=== PATIENT | female | born 1960 | race Caucasian/White ===

== ENCOUNTER 2020-01-29 05:59 | Inpatient (IN) ==
[2020-01-29] MEDS ORDERED: HYDROmorphone INJ 0.5 MG/0.5 ML SYR IV PRN (06:14)
[2020-01-29] MEDS ORDERED: SODIUM CHLORIDE 0.9% 1000ML 1,000 ML IV STA (06:14)
[2020-01-29] MEDS ORDERED: ONDANSETRON INJ 2 MG/ML 2 ML VIAL IV STA (06:14)
[2020-01-29 06:44] LABS: Appearance Urine Cloudy (Clear); Bacteria Urine Automated 1+ (Negative); Bilirubin Urine Negative (Negative); Blood Urine Negative (Negative); Color Urine Yellow; Epithelial Cell Urine Auto >30 /lpf (0-5); Glucose Urine UA Negative (Negative); Ketones Urine Negative (Negative); Leukocyte Esterase Urine 3+ (Negative); Nitrite Urine Negative (Negative); Protein Urine Negative (Negative); RBC Urine Automated 0-4 /hpf (0-4); Specific Gravity Urine 1.017 (1.000-1.030); Urobilinogen Urine Negative (Negative); pH Urine 5.5 (4.5-7.5)
[2020-01-29 06:49] LABS: Basophils # (auto) 0.03 K/uL (0-0.2); Basophils % (auto) 0.2 %; Eosinophils # (auto) 0.06 K/uL (0-0.5); Eosinophils % (auto) 0.4 %; Hematocrit (blood only) 42.6 % (37-47); Hemoglobin 14.3 g/dL (12.0-16.0); Immature Granulocytes # (auto) 0.02 K/uL (0.00-0.02); Immature Granulocytes % (auto) 0.1 %; Lymphocytes # (auto) 1.98 K/uL (1.2-3.4); Mean Corpuscular Hemoglobin 31.5 pg (25-34); Mean Corpuscular Hgb Conc 33.6 g/dL (32-36); Mean Corpuscular Volume 93.8 fL (80-100); Mean Platelet Volume 10.9 fL (7.4-10.4); Monocytes # (auto) 1.24 K/uL (0.11-0.59); Monocytes % (auto) 8.2 %; Neutrophils # (auto) 11.86 K/uL (1.4-6.5); Neutrophils % (auto) 78.1 %; Platelet Count 239 K/uL (130-400); RDW Coefficient of Variation 13.9 % (11.5-14.5); RDW Standard Deviation 47.8 fL (36.4-46.3); Red Blood Count 4.54 M/uL (4.2-5.4); White Blood Count 15.19 K/uL (4.8-10.8)
[2020-01-29 06:54] LABS: Cast Urine Automated 0 /lpf (0-5)
[2020-01-29 07:03] LABS: iSTAT Creatinine 0.7 mg/dl (0.6-1.3); iSTAT Hemoglobin 13.3 g/dl (12.0-16.0); iSTAT Ionized Calcium 1.16 mmol/l (1.12-1.32); iSTAT Potassium 4.2 mmol/L (3.3-5.0)
--- NOTE | 2020-01-29 07:05 | Emergency Department Note ---
History of Present Illness General Chief Complaint: Abdominal Pain Stated Complaint: SEVERE RT LOWER ABD PAIN,NAUSEA Time Seen by Provider: 01/29/20 06:25 Source: patient, family (brother), RN notes reviewed and old records reviewed Mode of arrival: ambulatory Limitations: no limitations History of Present Illness Provider Complaint: abdominal pain (RLQ) Onset (ago): 1 day(s) Pain Consistency: constant and now resolved Location: RLQ Radiation: back Migration to: no migration Severity: severe Maximum Pain Intensity: 9 Current Pain Intensity: 0 Quality: + aching Relieved By: + nothing Exacerbated By: + movement Context: no history of similar episodes Associated Symptoms: + nausea; no constipation and no dysuria Treatments prior to arrival: NSAIDs This is a 59-year-old female who presents emergency department complaining of right lower quadrant abdominal pain that started yesterday. Patient describes t he pain as a burning sensation with radiation into her back. She reports movement makes the pain worse. She reportedly took ibuprofen and had improvement of the pain with this. Patient denies any fevers or chills or urinary symptoms. She has never had abdominal surgery and has never had abdominal pain like this. Related Data Patient Confirmed : No Home Medications Home Medications Medication Instructions Recorded Confirmed Type gemfibrozil 600 mg PO BID 01/29/20 01/29/20 History glyburide 20 mg PO HS 01/29/20 01/29/20 History lisinopril-hydrochlorothiazide 1 tab PO DAILY 01/29/20 01/29/20 History metformin 1,000 mg PO BID 01/29/20 01/29/20 History nateglinide 0 mg PO DAILY 01/29/20 01/29/20 History rosuvastatin [Crestor] 10 mg PO HS 01/29/20 01/29/20 History semaglutide [Ozempic] 1 mg SUBCUT WK 01/29/20 01/29/20 History Allergies Allergy/AdvReac Type Severity Reaction Status Date / Time No Known Allergies Allergy Verified 01/29/20 06:37 Past Med/Surg History Social History Smoking Status: Never smoker Preferred Language: Stateless Feels Safe at Home: Yes Assistive Devices: Glasses Review of Systems A total of 10 systems reviewed and were otherwise negative Physical Exam Vital Signs: Vital Signs - 24 hr 01/29/20 09:00 01/29/20 10:19 Temperature 37.3 C Temperature Source Oral Pulse Rate [Apical ] 84 99 H Pulse Rhythm [Apic al] Regular Pulse Strength [Ap ical] Normal Respiratory Rate 18 20 Respiratory Effort / Characteristics Non-Labored Sponta neous Respiratory Depth Normal Respiratory Patter n Regular Blood Pressure [Le ft Arm] 142/78 H 166/83 H Blood Pressure Jennifer n [Left Arm] 99 110 Blood Pressure Pos ition [Left Arm] Sitting Pulse Oximetry 98 100 Oxygen Delivery Me thod Room Air Room Air Physical Exam: VITAL SIGNS - Vital signs and nursing notes were reviewed. GENERAL - 59-year-old female appearing stated age who is in no acute distress. Communicates well with provider and answers questions appropriately. SKIN - Without rashes. HEAD - NC/AT. EYES - PERRL with EOMI bilaterally. Sclera anicteric. Palpebral conjunctiva pink and moist with no injection noted. EARS - No deformities of external structures noted on gross examination bilaterally. No pain elicited with palpation of the tragus bilaterally. External auditory canals without discharge or otorrhea. Tympanic membranes pearly davidson without retraction or bulging. No fluid or purulent material visualized behind the TM. Handle of malleus, umbo, cone of light, pars tensa/flaccid all easily visualized. NOSE - Midline and without cyanosis. No epistaxis or purulent drainage noted. Septum midline without deviation or septal hematoma noted. MOUTH/OROPHARYNX - Without perioral cyanosis. Buccal mucosa pink and moist and without leukoplakia. Tongue midline with equal elevation of palate bilaterally. No tonsillar hypertrophy, erythema, or exudates noted. dentition noted. NECK - Neck with FROM. Supple to palpation. lymphadenopathy noted. No nuchal rigidity. LUNGS - Chest wall symmetric without accessory muscle use, intercostals retractions, or central cyanosis. Normal vesicular breath sounds CTA B/L. No wheezes, rales, or rhonchi appreciated. CARDIAC - RRR with S1/S2. No murmur, rubs, or gallops appreciated. ABDOMEN - Abdominal contour without pulsations or visible masses. BS normoactive all four quadrants. +tenderness RLQ, No palpable masses, hepatosplenomegaly, or ascites noted. EXTREMITIES - No clubbing or peripheral cyanosis. No pretibial edema present. +3/5 radial, posterior tibial, and dorsalis pedis pulses palpated throughout. +5/5 strength noted in UE/LE bilaterally. NEUROLOGIC - Cranial nerves II through XII grossly intact. Sensory intact to light touch throughout. Patellar reflexes +2/4. PSYCH - A&Ox3 and cooperates fully with examiner. Pt is very pleasant and interacts well with examiner. Course Administered Medications Gemfibrozil (Gemfibrozil 600 Mg Tab) 600 mg PO BID ARASH Stop: 02/28/20 20:59 Last Admin: 01/29/20 20:52 Dose: 600 mg Documented by: [id number] Lactated Ringer's (Lr) 1,000 mls @ 80 mls/hr IV .[id number] ARASH Stop: 02/28/20 14:59 Last Admin: 01/30/20 03:27 Dose: 80 mls/hr Documented by: [id number] Infusion: 01/30/20 03:27 Dose: 80 mls/hr Documented by: [id number] Admin: 01/29/20 20:53 Dose: 80 mls/hr Documented by: [id number] Piperacillin Sod/Tazobactam (Sod 3.375 gm/ Dextrose) 115 mls @ 28.75 mls/hr IV Q8H [facility]; Protocol Stop: 02/08/20 21:59 Last Admin: 01/30/20 06:10 Dose: 28.8 mls/hr Documented by: [id number] Infusion: 01/30/20 01:13 Dose: 0 mls/hr Documented by: [id number] Admin: 01/29/20 21:14 Dose: 28.8 mls/hr Documented by: [id number] Ibuprofen (Ibuprofen 200 Mg Tab) 400 mg PO TID PRN PRN Reason: Pain Stop: 02/28/20 18:06 Last Admin: 01/29/20 19:09 Dose: 400 mg Documented by: [id number] Insulin Aspart (Insulin Aspart 100 Units/Ml 3 Ml Pen) 0 units SC Q6 ARASH Stop: 02/28/20 17:59 Last Admin: 01/30/20 06:10 Dose: 2 units Documented by: [id number] Cosigned by: [id number] Admin: 01/30/20 00:04 Dose: 1 units Documented by: [id number] Cosigned by: [id number] Admin: 01/29/20 19:03 Dose: Not Given Documented by: [id number] Cosigned by: [id number] Miscellaneous (Nateglinide - Order Awaiting Action) 1 ea N/A QS ARASH Stop: 02/28/20 15:59 Last Admin: 01/30/20 00:05 Dose: Not Given Documented by: [id number] Admin: 01/29/20 17:46 Dose: Not Given Documented by: [id number] Miscellaneous (Semaglutide [Ozempic] 1 Mg - Order Awaiting Action) 1 ea N/A QS ARASH Stop: 02/28/20 15:59 Last Admin: 01/30/20 00:06 Dose: Not Given Documented by: [id number] Admin: 01/29/20 17:46 Dose: Not Given Documented by: [id number] Oxycodone/Acetaminophen (Oxycodone/Acetaminophen 5mg/325mg Tab) 1 tab PO Q4H PRN PRN Reason: Pain Stop: 02/12/20 14:37 Last Admin: 01/30/20 04:42 Dose: 1 tab Documented by: [id number] Admin: 01/29/20 23:09 Dose: 1 tab Documented by: [id number] Rosuvastatin Calcium (Rosuvastatin Calcium 10 Mg Tab) 10 mg PO HS ARASH Stop: 02/28/20 20:59 Last Admin: 01/29/20 20:52 Dose: 10 mg Documented by: [id number] Discontinued Medications Bacitracin (Bacitracin Oint 15 Gm Tube) Confirm Administered Dose 45 appln .ROUTE .STK-MED ONE Stop: 01/29/20 10:20 Last Admin: 01/29/20 12:58 Dose: 45 appln Documented by: [id number] Bupivacaine HCl (Bupivacaine 0.5 % 5 Mg/1 Ml Mpf 30ml Vial) Confirm Administered Dose 30 ml .ROUTE .STK-MED ONE Stop: 01/29/20 10:20 Last Admin: 01/29/20 12:59 Dose: 20 ml Documented by: [id number] Hydromorphone HCl (Hydromorphone Inj 0.5 Mg/0.5 Ml Syr) 0.5 mg IV Q1H PRN PRN Reason: Pain Stop: 02/12/20 06:13 Last Admin: 01/29/20 07:21 Dose: 0.5 mg Documented by: [id number] Sodium Chloride (Nss 1000ml) 1,000 mls @ 125 mls/hr IV .Q8H STA Stop: 01/29/20 14:13 Last Infusion: 01/29/20 15:17 Dose: 0 mls/hr Documented by: [id number] Admin: 01/29/20 07:21 Dose: 125 mls/hr Documented by: [id number] Cefoxitin Sodium (Mefoxin) 2,000 mg in 60 mls @ 100 mls/hr IV NOW STA Stop: 01/29/20 08:23 Last Infusion: 01/29/20 09:43 Dose: 0 mls/hr Documented by: [id number] Admin: 01/29/20 09:05 Dose: 100 mls/hr Documented by: [id number] Sodium Chloride (Nss 1000ml) 1,000 mls @ 999 mls/hr IV .Q1H1M ONE Stop: 01/29/20 08:48 Last Infusion: 01/29/20 09:44 Dose: 0 mls/hr Documented by: [id number] Admin: 01/29/20 08:29 Dose: 999 mls/hr Documented by: [id number] Piperacillin Sod/Tazobactam (Sod 3.375 gm/ Dextrose) 115 mls @ 230 mls/hr IV TODAY@1530 ONE; Protocol Stop: 01/29/20 15:59 Last Infusion: 01/29/20 17:30 Dose: 0 mls/hr Documented by: [id number] Admin: 01/29/20 16:51 Dose: 230 mls/hr Documented by: [id number] Ioversol (Ioversol 100ml) 93 ml IV ONCE ONE Stop: 01/29/20 07:14 Last Admin: 01/29/20 07:13 Dose: 93 ml Documented by: [id number] Lidocaine HCl (Lidocaine Hcl 1% 20 Ml Vial) Confirm Administered Dose 20 ml .ROUTE .STK-MED ONE Stop: 01/29/20 10:20 Last Admin: 01/29/20 12:59 Dose: 20 ml Documented by: [id number] Ondansetron HCl (Ondansetron Inj 2 Mg/Ml 2 Ml Vial) 4 mg IV NOW STA Stop: 01/29/20 06:15 Last Admin: 01/29/20 07:21 Dose: 4 mg Documented by: [id number] Medical Decision Making Differential Diagnosis + peptic ulcer disease, + biliary pathology, + UTI, + obstruction, + mesenteric ischemia, + aortic pathology, + inflammatory bowel disease, + ovarian torsion (female), + pelvic inflammatory disease (female), + abdominal pain, + appen dicitis, + calculus of kidney, + constipation, + diverticulitis, + gastroenteritis, + pancreatitis and + small bowel obstruction Medical Records Attestation: I reviewed the patient's medical records. Home Medications Current Medication List: was personally reviewed by me Laboratory Data Attestation: I reviewed the patient's lab results. Result diagrams: 01/30/20 05:48 01/30/20 05:48 Lab Results 01/29/20 01/29/20 01/29/20 Range/Units 06:30 06:30 06:30 WBC 15.19 H (4.8-10.8) K/uL RBC 4.54 (4.2-5.4) M/uL Hgb 14.3 (12.0-16.0) g/dL POC Hgb (12.0-16.0) g/dl Hct 42.6 (37-47) % POC Hct (37-47) % MCV 93.8 (80-100) fL MCH 31.5 (25-34) pg MCHC 33.6 (32-36) g/dL RDW Std Deviation 47.8 H (36.4-46.3) fL RDW Coeff of Vicky 13.9 (11.5-14.5) % Plt Count 239 (130-400) K/uL MPV 10.9 H (7.4-10.4) fL Immature Gran % (Auto) 0.1 % Neut % (Auto) 78.1 % Lymph % (Auto) 13.0 % Mcminn % (Auto) 8.2 % Eos % (Auto) 0.4 % Baso % (Auto) 0.2 % Neut # (Auto) 11.86 H (1.4-6.5) K/uL Lymph # (Auto) 1.98 (1.2-3.4) K/uL Mcminn # (Auto) 1.24 H (0.11-0.59) K/uL Eos # (Auto) 0.06 (0-0.5) K/uL Baso # (Auto) 0.03 (0-0.2) K/uL Immature Gran # (Auto) 0.02 (0.00-0.02) K/uL POC Sodium (135-144) mmol/L Sodium 135 L (136-145) mmol/L POC Potassium (3.3-5.0) mmol/L Potassium 4.0 (3.5-5.1) mmol/L POC Chloride (101-112) mmol/L Chloride 101 (98-107) mmol/L Carbon Dioxide 26 (21-32) mmol/L POC Total CO2 (24-31) mmol/L Anion Gap 8.0 (3-11) POC Anion Gap (16-25) mmol/L POC BUN (7-18) mg/dl BUN 14 (7-18) mg/dl Creatinine 1.01 (0.6-1.2) mg/dl POC Creatinine (0.6-1.3) mg/dl Est Cr Clr Drug Dosing 59.3 ml/min Est GFR ( Amer) 71.1 Est GFR (Non-Af Amer) 61.3 BUN/Creatinine Ratio 13.9 (10-20) Glucose 147 H (70-99) mg/dl POC Glucose (other) (70-99) mg/dl Calcium 10.2 H (8.5-10.1) mg/dl POC Ioniz Calcium Tara (1.12-1.32) mmol/l Total Bilirubin 0.4 (0.2-1) mg/dl AST 18 (15-37) U/L ALT 35 (12-78) U/L Alkaline Phosphatase 62 (45-117) U/L Total Protein 8.8 H (6.4-8.2) gm/dl Albumin 4.3 (3.4-5.0) gm/dl Globulin 4.5 H (2.5-4.0) gm/dl Albumin/Globulin Ratio 1.0 (0.9-2) Lipase 827 H (73-393) U/L Urine Color Yellow Urine Appearance Cloudy A (Clear) Urine pH 5.5 (4.5-7.5) Ur Specific Vining 1.017 (1.000-1.030) Urine Protein Negative (Negative) Urine Glucose (UA) Negative (Negative) Urine Ketones Negative (Negative) Urine Blood Negative (Negative) Urine Nitrite Negative (Negative) Urine Bilirubin Negative (Negative) Urine Urobilinogen Negative (Negative) Ur Leukocyte Esterase 3+ H (Negative) Urine WBC (Auto) 5-10 H (0-5) /hpf Urine RBC (Auto) 0-4 (0-4) /hpf U Hyaline Cast (Auto) 0 (0-5) /lpf U Epithel Cells (Auto) >30 H (0-5) /lpf Urine Bacteria (Auto) 1+ H (Negative) Urine Yeast Not Reportable COVID-19 Eval Order SARS-CoV-2, RNA, NAAT 01/29/20 01/29/20 01/29/20 Range/Units 06:51 09:50 09:50 WBC (4.8-10.8) K/uL RBC (4.2-5.4) M/uL Hgb (12.0-16.0) g/dL POC Hgb 13.3 (12.0-16.0) g/dl Hct (37-47) % POC Hct 39 (37-47) % MCV (80-100) fL MCH (25-34) pg MCHC (32-36) g/dL RDW Std Deviation (36.4-46.3) fL RDW Coeff of Vicky (11.5-14.5) % Plt Count (130-400) K/uL MPV (7.4-10.4) fL Immature Gran % (Auto) % Neut % (Auto) % Lymph % (Auto) % Mcminn % (Auto) % Eos % (Auto) % Baso % (Auto) % Neut # (Auto) (1.4-6.5) K/uL Lymph # (Auto) (1.2-3.4) K/uL Mcminn # (Auto) (0.11-0.59) K/uL Eos # (Auto) (0-0.5) K/uL Baso # (Auto) (0-0.2) K/uL Immature Gran # (Auto) (0.00-0.02) K/uL POC Sodium 136 (135-144) mmol/L Sodium (136-145) mmol/L POC Potassium 4.2 (3.3-5.0) mmol/L Potassium (3.5-5.1) mmol/L POC Chloride 101 (101-112) mmol/L Chloride (98-107) mmol/L Carbon Dioxide (21-32) mmol/L POC Total CO2 26 (24-31) mmol/L Anion Gap (3-11) POC Anion Gap 14.0 L (16-25) mmol/L POC BUN 15 (7-18) mg/dl BUN (7-18) mg/dl Creatinine (0.6-1.2) mg/dl POC Creatinine 0.7 (0.6-1.3) mg/dl Est Cr Clr Drug Dosing ml/min Est GFR ( Amer) Est GFR (Non-Af Amer) BUN/Creatinine Ratio (10-20) Glucose (70-99) mg/dl POC Glucose (other) 151 H (70-99) mg/dl Calcium (8.5-10.1) mg/dl POC Ioniz Calcium Tara 1.16 (1.12-1.32) mmol/l Total Bilirubin (0.2-1) mg/dl AST (15-37) U/L ALT (12-78) U/L Alkaline Phosphatase (45-117) U/L Total Protein (6.4-8.2) gm/dl Albumin (3.4-5.0) gm/dl Globulin (2.5-4.0) gm/dl Albumin/Globulin Ratio (0.9-2) Lipase (73-393) U/L Urine Color Urine Appearance (Clear) Urine pH (4.5-7.5) Ur Specific Vining (1.000-1.030) Urine Protein (Negative) Urine Glucose (UA) (Negative) Urine Ketones (Negative) Urine Blood (Negative) Urine Nitrite (Negative) Urine Bilirubin (Negative) Urine Urobilinogen (Negative) Ur Leukocyte Esterase (Negative) Urine WBC (Auto) (0-5) /hpf Urine RBC (Auto) (0-4) /hpf U Hyaline Cast (Auto) (0-5) /lpf U Epithel Cells (Auto) (0-5) /lpf Urine Bacteria (Auto) (Negative) Urine Yeast COVID-19 Eval Order Covid19 IDNow atMRIC SARS-CoV-2, RNA, NAAT Cancelled 01/29/20 Range/Units 11:00 WBC (4.8-10.8) K/uL RBC (4.2-5.4) M/uL Hgb (12.0-16.0) g/dL POC Hgb (12.0-16.0) g/dl Hct (37-47) % POC Hct (37-47) % MCV (80-100) fL MCH (25-34) pg MCHC (32-36) g/dL RDW Std Deviation (36.4-46.3) fL RDW Coeff of Vicky (11.5-14.5) % Plt Count (130-400) K/uL MPV (7.4-10.4) fL Immature Gran % (Auto) % Neut % (Auto) % Lymph % (Auto) % Mcminn % (Auto) % Eos % (Auto) % Baso % (Auto) % Neut # (Auto) (1.4-6.5) K/uL Lymph # (Auto) (1.2-3.4) K/uL Mcminn # (Auto) (0.11-0.59) K/uL Eos # (Auto) (0-0.5) K/uL Baso # (Auto) (0-0.2) K/uL Immature Gran # (Auto) (0.00-0.02) K/uL POC Sodium (135-144) mmol/L Sodium (136-145) mmol/L POC Potassium (3.3-5.0) mmol/L Potassium (3.5-5.1) mmol/L POC Chloride (101-112) mmol/L Chloride (98-107) mmol/L Carbon Dioxide (21-32) mmol/L POC Total CO2 (24-31) mmol/L Anion Gap (3-11) POC Anion Gap (16-25) mmol/L POC BUN (7-18) mg/dl BUN (7-18) mg/dl Creatinine (0.6-1.2) mg/dl POC Creatinine (0.6-1.3) mg/dl Est Cr Clr Drug Dosing ml/min Est GFR ( Amer) Est GFR (Non-Af Amer) BUN/Creatinine Ratio (10-20) Glucose (70-99) mg/dl POC Glucose (other) (70-99) mg/dl Calcium (8.5-10.1) mg/dl POC Ioniz Calcium Tara (1.12-1.32) mmol/l Total Bilirubin (0.2-1) mg/dl AST (15-37) U/L ALT (12-78) U/L Alkaline Phosphatase (45-117) U/L Total Protein (6.4-8.2) gm/dl Albumin (3.4-5.0) gm/dl Globulin (2.5-4.0) gm/dl Albumin/Globulin Ratio (0.9-2) Lipase (73-393) U/L Urine Color Urine Appearance (Clear) Urine pH (4.5-7.5) Ur Specific Vining (1.000-1.030) Urine Protein (Negative) Urine Glucose (UA) (Negative) Urine Ketones (Negative) Urine Blood (Negative) Urine Nitrite (Negative) Urine Bilirubin (Negative) Urine Urobilinogen (Negative) Ur Leukocyte Esterase (Negative) Urine WBC (Auto) (0-5) /hpf Urine RBC (Auto) (0-4) /hpf U Hyaline Cast (Auto) (0-5) /lpf U Epithel Cells (Auto) (0-5) /lpf Urine Bacteria (Auto) (Negative) Urine Yeast COVID-19 Eval Order SARS-CoV-2, RNA, NAAT NEGATIVE Imaging Data Radiologist's Impression: [place], [place] [phone] CT Scan Report Patient: ALEXANDRA MCMAHAN Admit Date: 01/29/20 MR#: [id number] Address1: [address] Acct ID:[id number] Address2: Date: 1960 [facility] Zip: [place] [address] Age: 59 Location: ED Sex: F Room/Bed: Att Phy: Diagnosis: SEVERE RT LOWER ABD PAIN,NAUSEA Patricia Phy: Vivian Chua DO Service Date: 01/29/20 Fam Phy: Interpreting Phy: Tico Bermudez MD Admit Phy: Ordering Phy: Alfie Gomez MD cc: ~ CT SCAN OF THE ABDOMEN AND PELVIS WITH IV CONTRAST CLINICAL HISTORY: Right lower quadrant abdominal pain. COMPARISON STUDY: No priors. TECHNIQUE: Following the IV administration of 93 cc of Optiray 320, CT scan of the abdomen and pelvis is performed from the lung bases to the proximal femora. Images are reviewed in the axial, sagittal, and coronal planes. IV contrast was administered without complication. A dose lowering technique was utilized adhering to the principles of ALARA. CT DOSE: 985.48 mGy.cm FINDINGS: Lung bases: The heart is normal in size and without pericardial effusion. The lung bases are clear. There is a small hiatal hernia. Liver: The contrast-enhanced liver is enlarged, measuring 19.8 cm in length. The liver demonstrates diffusely diminished attenuation consistent with hepatic steatosis. Fatty sparing is noted adjacent to gallbladder fossa. There is no intrahepatic biliary ductal dilatation. The hepatic veins and portal veins are patent. Gallbladder: Unremarkable. Spleen: Normal in size and attenuation. Pancreas: Unremarkable. Adrenal glands: Unremarkable. Kidneys: The contrast enhanced kidneys are normal in size and without hyd ronephrosis. The kidneys enhance symmetrically. Abdominal vasculature: The abdominal aorta is normal in course and caliber noting mild to moderate atherosclerotic calcification. Bowel: There is mild to moderate colonic diverticulosis without CT evidence of acute diverticulitis. No bowel obstruction is seen. Mild/moderate fecal retention is noted throughout the colon. A calcified appendicolith is seen at the base of the appendix on image #263. The appendix is dilated and fluid-filled measuring up to 1.5 cm. The wall is thickened and hyperemic. There is possible discontinuity of the appendiceal wall a small air-fluid level seen on image #276. Perforation is not excluded. There is significant surrounding inflammation with fluid tracking along the right paracolic gutter. Peritoneum: There is no intraperitoneal free air or abdominal ascites. There is a fat-containing umbilical hernia. Lymphadenopathy: None. Pelvic viscera: The bladder, uterus, and adnexa are normal as visualized. Skeletal structures: The skeletal structures are osteopenic. Mild to moderate lumbosacral spondylosis is observed. Degenerative sclerosis is noted in the sacroiliac joints. No lytic or blastic lesions are seen. IMPRESSION: 1. Findings are consistent with acute appendicitis. 2. Question discontinuity of the appendiceal wall. Perforation is not excluded. No organized fluid collection is clearly identified. 3. Free fluid is seen tracking along the right paracolic gutter. 4. Colonic diverticulosis without CT evidence of acute diverticulitis. 5. Hepatomegaly and severe hepatic steatosis. 6. Additional findings as above. ACT 112: Negative or not required by law. Electronically signed by: Tico Bermudez M.D. 01/29/2020 7:35 AM Dictated: 01/29/20728 Transcribed: 01/29/20728 MDM Narrative Patient was seen and evaluated as above in room A12. Review was performed of nursing notes and vital signs. I did review pertinent previous visits and patient history. After obtaining a thorough history and physical examination the above work up was performed. This is a 59-year-old female who presents emergency department complaining of right lower quadrant abdominal pain that is been crescendoing in nature since yesterday. The patient does have an elevation in her white blood cell count of 15,000. CAT scan is consistent with acute appendicitis. I did discuss the case with the surgeon. Patient was started on Mefoxin here in the emergency department. An order was placed for continuous cardiac monitoring. The monitor shows a rate of 99 with Normal Sinus rhythm. The patient was evaluated during the global COVID-19 pandemic, and that diagnosis was suspected/considered upon their initial presentation. Their evaluation, treatment and testing was consistent with current guidelines for patients who present with complaints or symptoms that may be related to COVID- 19. Impression & Plan Abdominal pain, Acute appendicitis Discharge Plan Visit Data Chief Complaint: Abdominal Pain Stated Complaint: SEVERE RT LOWER ABD PAIN,NAUSEA ED Provider: Alfie Gomez Discharge Problem: Abdominal pain, Acute appendicitis Patient Disposition: Still a Patient Discharge Instructions Interventions: ED Discharge Assessment Last Done: 01/29/20 10:01 Discharge Problem: Abdominal pain Qualifiers: Abdominal location: right lower quadrant Qualified Code(s): R10.31 - Right lower quadrant pain Acute appendicitis Qualifiers: Acute appendicitis type: unspecified acute appendicitis type Qualified Code(s): K35.80 - Unspecified acute appendicitis
[2020-01-29 07:09] LABS: Albumin Level 4.3 gm/dl (3.4-5.0); BUN Creatinine Ratio 13.9 (10-20); Calcium 10.2 mg/dl (8.5-10.1); Creatinine Clr Calc Pharmacy 59.3 ml/min; Est GFR (African American) 71.1; Est GFR (Non-African American) 61.3
[2020-01-29 07:12] LABS: Bilirubin,Total 0.4 mg/dl (0.2-1); Globulin 4.5 gm/dl (2.5-4.0); Total Protein 8.8 gm/dl (6.4-8.2)
[2020-01-29] MEDS ORDERED: IOVERSOL 100ml IV ONE (07:13)
--- NOTE | 2020-01-29 07:36 | CT Scan Report ---
CT SCAN OF THE ABDOMEN AND PELVIS WITH IV CONTRAST CLINICAL HISTORY: Right lower quadrant abdominal pain. COMPARISON STUDY: No priors. TECHNIQUE: Following the IV administration of 93 cc of Optiray 320, CT scan of the abdomen and pelvi s is performed from the lung bases to the proximal femora. Images are reviewed in the axial, sagittal , and coronal planes. IV contrast was administered without complication. A dose lowering technique wa s utilized adhering to the principles of ALARA. CT DOSE: 985.48 mGy.cm FINDINGS: Lung bases: The heart is normal in size and without pericardial effusion. The lung bases are clear. T here is a small hiatal hernia. Liver: The contrast-enhanced liver is enlarged, measuring 19.8 cm in length. The liver demonstrates d iffusely diminished attenuation consistent with hepatic steatosis. Fatty sparing is noted adjacent to gallbladder fossa. There is no intrahepatic biliary ductal dilatation. The hepatic veins and portal veins are patent. Gallbladder: Unremarkable. Spleen: Normal in size and attenuation. Pancreas: Unremarkable. Adrenal glands: Unremarkable. Kidneys: The contrast enhanced kidneys are normal in size and without hydronephrosis. The kidneys enh ance symmetrically. Abdominal vasculature: The abdominal aorta is normal in course and caliber noting mild to moderate at herosclerotic calcification. Bowel: There is mild to moderate colonic diverticulosis without CT evidence of acute diverticulitis. No bowel obstruction is seen. Mild/moderate fecal retention is noted throughout the colon. A calcifie d appendicolith is seen at the base of the appendix on image #263. The appendix is dilated and fluid- filled measuring up to 1.5 cm. The wall is thickened and hyperemic. There is possible discontinuity o f the appendiceal wall a small air-fluid level seen on image #276. Perforation is not excluded. There is significant surrounding inflammation with fluid tracking along the right paracolic gutter. Peritoneum: There is no intraperitoneal free air or abdominal ascites. There is a fat-containing umbi lical hernia. Lymphadenopathy: None. Pelvic viscera: The bladder, uterus, and adnexa are normal as visualized. Skeletal structures: The skeletal structures are osteopenic. Mild to moderate lumbosacral spondylosis is observed. Degenerative sclerosis is noted in the sacroiliac joints. No lytic or blastic lesions a re seen. IMPRESSION: 1. Findings are consistent with acute appendicitis. 2. Question discontinuity of the appendiceal wall. Perforation is not excluded. No organized fluid co llection is clearly identified. 3. Free fluid is seen tracking along the right paracolic gutter. 4. Colonic diverticulosis without CT evidence of acute diverticulitis. 5. Hepatomegaly and severe hepatic steatosis. 6. Additional findings as above. ACT 112: Negative or not required by law. Electronically signed by: Tico Bermudez M.D. 01/29/2020 7:35 AM
[2020-01-29] MEDS ORDERED: cefOXitin 2,000 MG/60 ML BAG IV STA (07:48)
[2020-01-29] MEDS ORDERED: SODIUM CHLORIDE 0.9% 1000ML 1,000 ML IV ONE (07:48)
--- NOTE | 2020-01-29 09:39 | Surgery Consultation ---
Date of Consultation January 29, 2020 Assessment & Plan (1) Acute appendicitis: pt is a 59 year-old female who presents to ER with one day history RLQ pain, IMP; acute appendicitis, Plan, I recommend to do laparoscopic appendectomy, possible open , D/W benefits, risks and alternatives of the surgery, the risks - infection, bleeding, abscess, sepsis, injury other organs, incision hernia, pt understood, she agrees with the surgery, I answered all questions, pre-op antibiotic Present on Admission?: Yes History of Present Illness History of Present Illness History of Present Illness General Chief Complaint: Abdominal Pain Stated Complaint: SEVERE RT LOWER ABD PAIN,NAUSEA Time Seen by Provider: 01/29/20 06:25 Source: patient, family (brother), RN notes reviewed and old records reviewed Mode of arrival: ambulatory Limitations: no limitations History of Present Illness Provider Complaint: abdominal pain (RLQ) Onset (ago): 1 day(s) Pain Consistency: constant and now resolved Location: RLQ Radiation: back Migration to: no migration Severity: severe Maximum Pain Intensity: 9 Current Pain Intensity: 0 Quality: + aching Relieved By: + nothing Exacerbated By: + movement Context: no history of similar episodes Associated Symptoms: + nausea; no constipation and no dysuria Treatments prior to arrival: NSAIDs This is a 59-year-old female who presents emergency department complaining of right lower quadrant abdominal pain that started yesterday. Patient describes the pain as a burning sensation with radiation into her back. She reports movement makes the pain worse. She reportedly took ibuprofen and had improvement of the pain with this. Patient denies any fevers or chills or urinary symptoms. She has never had abdominal surgery and has never had abdominal pain like this. I ( Oli Coburn MD ) got a call for consult acute appendicitis, I reviewed pt's H/P, labs, CT scan with pt, pt is still have RLQ pain. Related Data Patient Confirmed : No Home Medications Home Medications Medication Instructions Recorded Confirmed Type gemfibrozil 600 mg PO BID 01/29/20 01/29/20 History glyburide 20 mg PO HS 01/29/20 01/29/20 History lisinopril-hydrochlorothiazide 1 tab PO DAILY 01/29/20 01/29/20 History metformin 1,000 mg PO BID 01/29/20 01/29/20 History nateglinide 0 mg PO DAILY 01/29/20 01/29/20 History rosuvastatin [Crestor] 10 mg PO HS 01/29/20 01/29/20 History semaglutide [Ozempic] 1 mg SUBCUT WK 01/29/20 01/29/20 History Allergies Allergy/AdvReac Type Severity Reaction Status Date / Time No Known Allergies Allergy Verified 01/29/20 06:37 Past Med/Surg History Social History Smoking Status: Never smoker Preferred Language: Dominican Feels Safe at Home: Yes Review of Systems A total of 10 systems reviewed and were otherwise negative Physical Exam Vital Signs: Vital Signs - 24 hr 01/29/20 06:06 01/29/20 06:34 Temperature 37.4 C Temperature Source Oral Pulse Rate 99 H Respiratory Rate 18 Respiratory Effort / Characteristics Non-Labored Sponta neous Respiratory Depth Normal Respiratory Patter n Regular Blood Pressure 161/8 H Blood Pressure Jennifer n 59 Blood Pressure Pos ition Sitting Pulse Oximetry 98 Oxygen Delivery Me thod Room Air Room Air Sepsis Recent Feve r Within 48 Hours No Sepsis New/Unexpla ined Change in Men sil Status No Sepsis Action Take n by Nursing No Action Required Allergies Allergy/AdvReac Type Severity Reaction Status Date / Time No Known Allergies Allergy Verified 01/29/20 06:37 Home Medications Home Medications Medication Instructions Recorded Confirmed Type gemfibrozil 600 mg PO BID 01/29/20 01/29/20 History glyburide 20 mg PO HS 01/29/20 01/29/20 History lisinopril-hydrochlorothiazide 1 tab PO DAILY 01/29/20 01/29/20 History metformin 1,000 mg PO BID 01/29/20 01/29/20 History nateglinide 0 mg PO DAILY 01/29/20 01/29/20 History rosuvastatin [Crestor] 10 mg PO HS 01/29/20 01/29/20 History semaglutide [Ozempic] 1 mg SUBCUT WK 01/29/20 01/29/20 History Patient History Social History Smoking Status: Never smoker Preferred Language: Dominican Feels Safe at Home: Yes Review of Systems Review of Systems: All systems reviewed & are unremarkable except as noted in HPI & below Constitutional: as per Subjective / HPI Eyes: as per Subjective / HPI Ear, Nose, Mouth, Throat: as per Subjective / HPI Respiratory: as per Subjective / HPI Cardiovascular: as per Subjective / HPI Gastrointestinal: as per Subjective / HPI Genitourinary: as per Subjective / HPI Musculoskeletal: as per Subjective / HPI Integumentary: as per Subjective / HPI Neurologic: as per Subjective / HPI Psychiatric: as per Subjective / HPI Endocrine: as per Subjective / HPI Hematologic / Lymphatic: as per Subjective / HPI Physical Exam Constitutional: WD/WN, vitals as above well developed and well nourished Eyes: PERRL, conjunctivae normal, anicteric sclerae ENMT: external ear and nose normal, oropharynx normal Neck: trachea midline, no thyromegaly Respiratory: normal respiratory effort, lungs clear to auscultation Cardiovascular: RRR, no murmur, no edema Rate/Rhythm: regular rate and regular rhythm Heart Sounds: normal S1 and normal S2 Gastrointestinal (Abdomen): soft, tenderness at RLQ, rebound pain +, no distend, BS + Musculoskeletal: no cyanosis or clubbing, extremities motor strength 5/5 Skin: no rashes, warm and dry Neurologic: patellar DTR's 2+ bilat, sensation intact Psychiatric: Orientation: alert and oriented x 3 Results & Data ([facility]) Vital Signs (Past 12 Hours) Vital Signs Temp Pulse Pulse Resp BP BP Pulse Ox 01/29/20 07:59 78 18 148/74 H 98 01/29/20 06:06 37.4 C 99 H 18 161/8 H 98 Laboratory Results Abnormal lab results 01/29/20 01/29/20 01/29/20 Range/Units 06:30 06:30 06:30 WBC 15.19 H (4.8-10.8) K/uL RDW Std Deviation 47.8 H (36.4-46.3) fL MPV 10.9 H (7.4-10.4) fL Neut # (Auto) 11.86 H (1.4-6.5) K/uL [place] # (Auto) 1.24 H (0.11-0.59) K/uL Sodium 135 L (136-145) mmol/L POC Anion Gap (16-25) mmol/L Glucose 147 H (70-99) mg/dl POC Glucose (other) (70-99) mg/dl Calcium 10.2 H (8.5-10.1) mg/dl Total Protein 8.8 H (6.4-8.2) gm/dl Globulin 4.5 H (2.5-4.0) gm/dl Lipase 827 H (73-393) U/L Urine Appearance Cloudy A (Clear) Ur Leukocyte Esterase 3+ H (Negative) Urine WBC (Auto) 5-10 H (0-5) /hpf U Epithel Cells (Auto) >30 H (0-5) /lpf Urine Bacteria (Auto) 1+ H (Negative) 01/29/20 Range/Units 06:51 WBC (4.8-10.8) K/uL RDW Std Deviation (36.4-46.3) fL MPV (7.4-10.4) fL Neut # (Auto) (1.4-6.5) K/uL [place] # (Auto) (0.11-0.59) K/uL Sodium (136-145) mmol/L POC Anion Gap 14.0 L (16-25) mmol/L Glucose (70-99) mg/dl POC Glucose (other) 151 H (70-99) mg/dl Calcium (8.5-10.1) mg/dl Total Protein (6.4-8.2) gm/dl Globulin (2.5-4.0) gm/dl Lipase (73-393) U/L Urine Appearance (Clear) Ur Leukocyte Esterase (Negative) Urine WBC (Auto) (0-5) /hpf U Epithel Cells (Auto) (0-5) /lpf Urine Bacteria (Auto) (Negative) Diagnostic Findings CT SCAN OF THE ABDOMEN AND PELVIS WITH IV CONTRAST CLINICAL HISTORY: Right lower quadrant abdominal pain. COMPARISON STUDY: No priors. TECHNIQUE: Following the IV administration of 93 cc of Optiray 320, CT scan of the abdomen and pelvis is performed from the lung bases to the proximal femora. Images are reviewed in the axial, sagittal, and coronal planes. IV contrast was administered without complication. A dose lowering technique was utilized adhering to the principles of ALARA. CT DOSE: 985.48 mGy.cm FINDINGS: Lung bases: The heart is normal in size and without pericardial effusion. The lung bases are clear. There is a small hiatal hernia. Liver: The contrast-enhanced liver is enlarged, measuring 19.8 cm in length. The liver demonstrates diffusely diminished attenuation consistent with hepatic steatosis. Fatty sparing is noted adjacent to gallbladder fossa. There is no intrahepatic biliary ductal dilatation. The hepatic veins and portal veins are patent. Gallbladder: Unremarkable. Spleen: Normal in size and attenuation. Pancreas: Unremarkable. Adrenal glands: Unremarkable. Kidneys: The contrast enhanced kidneys are normal in size and without hydronephrosis. The kidneys enhance symmetrically. Abdominal vasculature: The abdominal aorta is normal in course and caliber noting mild to moderate atherosclerotic calcification. Bowel: There is mild to moderate colonic diverticulosis without CT evidence of acute diverticulitis. No bowel obstruction is seen. Mild/moderate fecal retention is noted throughout the colon. A calcified appendicolith is seen at the base of the appendix on image #[id number]. The appendix is dilated and fluid-filled measuring up to 1.5 cm. The wall is thickened and hyperemic. There is possible discontinuity of the appendiceal wall a small air-fluid level seen on image #[id number]. Perforation is not excluded. There is significant surrounding inflammation with fluid tracking along the right paracolic gutter. Peritoneum: There is no intraperitoneal free air or abdominal ascites. There is a fat-containing umbilical hernia. Lymphadenopathy: None. Pelvic viscera: The bladder, uterus, and adnexa are normal as visualized. Skeletal structures: The skeletal structures are osteopenic. Mild to moderate lumbosacral spondylosis is observed. Degenerative sclerosis is noted in the sacroiliac joints. No lytic or blastic lesions are seen. IMPRESSION: 1. Findings are consistent with acute appendicitis. 2. Question discontinuity of the appendiceal wall. Perforation is not excluded. No organized fluid collection is clearly identified. 3. Free fluid is seen tracking along the right paracolic gutter. 4. Colonic diverticulosis without CT evidence of acute diverticulitis. 5. Hepatomegaly and severe hepatic steatosis. 6. Additional findings as above.
--- NOTE | 2020-01-29 09:44 | History & Physical Bridge Note ---
Date of Service January 29, 2020 History & Physical Bridge Note I have examined the patient, reviewed the History & Physical and in the interval since the performance of the History & Physical I have noted the following changes of clinical significance: no changes noted
[2020-01-29] MEDS ORDERED: LIDOCAINE HCL 1% 20 ML VIAL ONE (10:19)
[2020-01-29] MEDS ORDERED: BACITRACIN OINT 15 GM TUBE ONE (10:19)
[2020-01-29] MEDS ORDERED: BUPIVACAINE 0.5 % 5 MG/1 ML MPF 30ML VIAL ONE (10:19)
[2020-01-29] MEDS ORDERED: MIDAZOLAM HCL 1 MG/ML 2ML VIAL ONE (10:25)
[2020-01-29] MEDS ORDERED: fentaNYL citrate 100 MCG/2 ML VIAL ONE ×2 (10:25)
--- NOTE | 2020-01-29 10:36 | Anesthesiology Consultation ---
Date of Service January 29, 2020 DM HTN Obesity JESSE on CPAP Assessment & Plan Chart Review Chart Review: Acceptable Risk for Surgery and Patient NOT seen in Pre Admission Testing Consults Requested none Proposed Anesthesia Risk / Benefits Reviewed With: PT / POA / Parent / Guardian, Accepts Plan and Informed Consent Obtained History Surgery Operation Date: 01/29/20 09:30 Proposed Procedures p Laparoscopic Appendectomy - Oli Coburn MD Height/Weight Height: 5 ft 1 in Weight: 83.1 kg Allergies Allergy/AdvReac Type Severity Reaction Status Date / Time No Known Allergies Allergy Verified 01/29/20 06:37 Medications Home Medications Medication Instructions Recorded Confirmed Last Taken gemfibrozil 600 mg PO BID 01/29/20 01/29/20 01/28/20 glyburide 20 mg PO HS 01/29/20 01/29/20 01/28/20 lisinopril-hydrochlorothiazide 1 tab PO DAILY 01/29/20 01/29/20 01/28/20 metformin 1,000 mg PO BID 01/29/20 01/29/20 01/28/20 nateglinide 0 mg PO DAILY 01/29/20 01/29/20 01/28/20 rosuvastatin [Crestor] 10 mg PO HS 01/29/20 01/29/20 01/28/20 semaglutide [Ozempic] 1 mg SUBCUT WK 01/29/20 01/29/20 01/21/20 Active Medications Generic Name Dose Route Start Last Admin Trade Name Freq PRN Reason Stop Dose Admin Hydromorphone HCl 0.5 mg 01/29/20 06:14 01/29/20 07:21 Hydromorphone Inj 0.5 Mg/0.5 Ml Syr IV 02/12/20 06:13 0.5 mg Q1H PRN Administration Pain Sodium Chloride 1,000 mls @ 125 mls/hr 01/29/20 06:14 01/29/20 07:21 Nss 1000ml IV 01/29/20 14:13 125 mls/hr .Q8H STA Administration NPO Date Last Intake of Fluids: 01/28/20 Time Last Intake of Fluids: 22:30 Last Intake of Fluids Comment: sips of water at 0330 today Date Last Intake of Solids: 01/28/20 Time Last Intake of Solids: 20:00 Last Intake of Solids Comment: . Exercise / Class Metabolic Activity II 4-5 Yardwork/Stairs/Walk up hill Past Anesthesia History No Hx of Anesthesia Complications and No Family Hx of Anesthesia Complications History of PONV No Hx of PONV and No Hx of Motion Sickness Social History Smoking Status: Never smoker Physical Exam Vital Signs Last Vital Signs Temp 37.3 C 01/29/20 10:19 Pulse 99 H 01/29/20 10:19 Resp 20 01/29/20 10:19 BP 166/83 H 01/29/20 10:19 Pulse Ox 100 01/29/20 10:19 Constitutional + obese ENMT Mouth: no dentition abnormality Thyromental Distance: > or= 3.5 Finger Breadths Mallampati Class: II Neck normal visual inspection Respiratory normal respiratory effort Auscultation: lungs clear to auscultation bilaterally Cardiovascular Rate/Rhythm: regular rhythm and + tachycardic Psychiatric Orientation: alert Testing Laboratory Results 01/29/20 06:30 01/29/20 06:30 Urine Color Yellow 01/29/20 06:30 Urine Appearance Cloudy (Clear) A 01/29/20 06:30 Urine pH 5.5 (4.5-7.5) 01/29/20 06:30 Ur Specific [place] 1.017 (1.000-1.030) 01/29/20 06:30 Urine Protein Negative (Negative) 01/29/20 06:30 Urine Glucose (UA) Negative (Negative) 01/29/20 06:30 Urine Ketones Negative (Negative) 01/29/20 06:30 Urine Nitrite Negative (Negative) 01/29/20 06:30 Ur Leukocyte Esterase 3+ (Negative) H 01/29/20 06:30 Urine WBC (Auto) 5-10 /hpf (0-5) H 01/29/20 06:30 Urine RBC (Auto) 0-4 /hpf (0-4) 01/29/20 06:30 U Hyaline Cast (Auto) 0 /lpf (0-5) 01/29/20 06:30 U Epithel Cells (Auto) >30 /lpf (0-5) H 01/29/20 06:30 Urine Bacteria (Auto) 1+ (Negative) H 01/29/20 06:30 01/29/20 06:51 POC Glucose (other) 151 H
[2020-01-29] MEDS ORDERED: PROMETHAZINE HCL 6.25 MG in SODIUM CHLORIDE 0.9% 50 ML IV PRN (10:37)
[2020-01-29] MEDS ORDERED: ONDANSETRON INJ 2 MG/ML 2 ML VIAL IV PRN (10:37)
[2020-01-29] MEDS ORDERED: fentaNYL citrate 100 MCG/2 ML VIAL IV PRN (10:37)
[2020-01-29] MEDS ORDERED: ATROPINE SULFATE 0.1 MG/ML 10ML SYR IV PRN (10:37)
[2020-01-29] MEDS ORDERED: ePHEDrine sulfate 50 MG/ML AMP IV PRN (10:37)
[2020-01-29] MEDS ORDERED: GLYCOPYRROLATE 0.2 MG/ML VIAL ONE (11:51)
[2020-01-29] MEDS ORDERED: LIDOCAINE HCL 2% 2 ML VIAL/AMP(20MG/ML) INFIL ONE (11:51)
[2020-01-29] MEDS ORDERED: PROPOFOL IV EMULSION 10 MG/ML 20 ML VIAL IV ONE (11:51)
[2020-01-29] MEDS ORDERED: ROCURONIUM BROMIDE 10 MG/ML 5 ML VIAL IV ONE (11:51)
[2020-01-29] MEDS ORDERED: ONDANSETRON INJ 2 MG/ML 2 ML VIAL ONE (11:51)
[2020-01-29] MEDS ORDERED: SUCCINYLCHOLINE CHLORIDE 20 MG/ML 10 ML VIAL IV ONE (11:51)
[2020-01-29] MEDS ORDERED: NEOSTIGMINE METHYLSULFATE 5 MG/5 ML SYR ONE (11:51)
[2020-01-29] MEDS ORDERED: ACETAMINOPHEN 1000 MG/100 ML IV IV ONE (12:16)
[2020-01-29] MEDS ORDERED: KETOROLAC 30 MG/ML VIAL ONE (12:57)
--- NOTE | 2020-01-29 13:11 | Post Operative Brief Note ---
Immediate Post Op Note v1 Date of Surgery January 29, 2020 Pre & Post Diagnosis Operation Date: 01/29/20 09:30 Pre-Op Diagnosis: Acute Appendicitis Post-Op Diagnosis: Acute Appendicitis I identified the patient and participated in the time-out.: Yes Procedure Operation Date: 01/29/20 09:30 Actual Procedures p Laparoscopic Appendectomy(Not Applicable) - Oli Coburn MD Surgeon Oli Coburn MD [employer] surgical services tech Estimated Blood Loss 10 Findings Consistent with Post-Op Diagnosis significant inflammation and enlarge appendix, acute appendicitis Fluids 1200ml Specimens appendix Drains Olivas Catheter (16fr olivas inserted by Lopez Lopez, to be removed at the end of procedure; output monitored by anesthesia throught surgery) and Chris-Brownlee Drain (10 flat ZEESHAN) Anesthesia Type General Complications none Disposition Accompanied Patient To Recovery: Yes Disposition: Recovery Room Overlapping Procedure I was immediately available: during the entire case.
--- NOTE | 2020-01-29 14:12 | Anesthesiology Progress Note ---
Date of Service January 29, 2020 Anesthesia Post Procedure Vital Signs Vital Signs: Temp Pulse Pulse Resp BP BP BP 01/29/20 13:55 37.3 C 94 H 15 158/79 H 01/29/20 13:45 98 H 17 150/80 H 01/29/20 13:35 94 H 17 151/83 H 01/29/20 13:25 37.3 C 94 H 16 159/86 H 01/29/20 10:19 37.3 C 99 H 20 166/83 H 01/29/20 09:00 84 18 142/78 H 01/29/20 07:59 78 18 148/74 H 01/29/20 06:06 37.4 C 99 H 18 161/8 H Pulse Ox 01/29/20 13:55 93 01/29/20 13:45 93 01/29/20 13:35 97 01/29/20 13:25 100 01/29/20 10:19 100 01/29/20 09:00 98 01/29/20 07:59 98 01/29/20 06:06 98 Pain Intensity Right Abdomen: Pain Intensity: 3 Transfer of Care Handoff Completed per policy Notes Mental Status: alert / awake / arousable and participated in evaluation Patient Amnestic to Procedure: Yes Nausea / Vomiting: adequately controlled Pain: adequately controlled Airway Patency, RR, SpO2: stable & adequate BP & HR: stable & adequate Hydration State: stable & adequate Anesthetic Complications: no major complications apparent and Pt Satisfied with anesthetic care
--- NOTE | 2020-01-29 14:17 | Operative Report (OR) ---
DATE OF OPERATION: 01/29/2020 PREOPERATIVE DIAGNOSIS: Acute appendicitis. POSTOPERATIVE DIAGNOSIS: Acute appendicitis. OPERATION: Laparoscopic appendectomy. SURGEON: Oli Coburn MD. ANESTHESIA: General. ESTIMATED BLOOD LOSS: About 10 mL. FINDINGS: Significant inflammation and enlarged appendix. Appendix size about 1.5 cm diameter, confirmed the diagnosis of acute appendicitis. COMPLICATIONS: None. INDICATIONS FOR THE PROCEDURE: This is a 59-year-old female who presented to ED with a couple day history of right lower quadrant pain. The patient had a CT scan diagnosis of acute appendicitis. I recommended to do laparoscopic appendectomy, possible open. I did talk to the patient about the benefit, the risk, alternate procedure. I indicated the risks may include but not limited to such as bleeding, infection, abscess, sepsis, injury to the bowel, incisional hernia. The patient understands. She signed informed consent and I answered all questions. DETAILS OF PROCEDURE: We brought the patient to the OR, put the patient in the supine position. The patient received SCD on bilateral legs to prevent DVT. Also, patient received 2 gram of cefoxitin IV for prophylactic antibiotic. The patient received general anesthesia without difficulty and the patient received Stephens catheter insertion. The abdomen was prepped and draped in routine sterile fashion. After time-out, I injected local anesthesia by using 1% lidocaine mixed with 0.5% Marcaine just above the umbilicus. Then, I made a small incision just above the umbilicus, opened fascia and opened peritoneum under direct vision, put a Juan Miguel trocar in, connected to CO2 to create pneumoperitoneum, flow rate at 6 liters per minute, pressure not more than 14 mmHg. Once we got a nice pneumoperitoneum, we put the camera in, looked around the abdomen, it shows normal finding on the small bowel, large bowel; however, the appendix had significant inflammation, enlarged appendix, conformed the diagnosis of acute appendicitis. Then, we put another two 5 mm trocars on the left lower quadrant area. We mobilized the appendix because the appendix is located back behind the cecum and we have to put another 5 mm trocar on the right upper quadrant in order to hold the cecum to expose the appendix. The appendix was significantly enlarged with inflammation, size about 1.5 cm diameter. Then, we mobilized the appendiceal by using Harmonic, rechecked, no active bleeding, and then we used a 45 mm Endo-SLADE, transected the appendix on the base of the appendix and then we had to use another SLADE staple, transected based on the significant inflammation tissue around the appendix. Then, rechecked the staple line, intact. No leak and no active bleeding. Then, we removed the appendix through the catch bag. Then we reinserted the Juan Miguel trocar in, connected to CO2 to create pneumoperitoneum, again looked around the abdomen, no active bleeding, no leak from the staple line. Based on the significant inflammation, I decided to put one 10 mm ZEESHAN drainage through the trocar incision. Once we put that in, I used 0 nylon, fixed the ZEESHAN drainage on the skin. Then we removed all trocars under direct vision. No active bleeding from the trocar sites. Pneumoperitoneum was released. Then I closed the umbilical incision fascial layer by using 0 Vicryl [id number] x2, closed subcutaneous layer by using 2-0 Vicryl interruptedly, closed skin by using 4-0 Vicryl continuous running, closed another two 5 mm trocar site skin only by using 4-0 Vicryl. Then, we put the dressing on. The patient tolerated the procedure well. All instrument, needle and sponge count were correct x2 at the end of case. The patient was transferred to recovery room in stable condition. The specimen was sent to pathology. After the procedure, I did talk to the patient and family member about the OR finding and the procedure we did, they understand. I attest to the content of the Intraoperative Record and any orders documented therein. Any exception s are noted below.
[2020-01-29] MEDS ORDERED: HYDROmorphone INJ 1 MG/ML SYRINGE IV PRN (14:38)
[2020-01-29] MEDS ORDERED: PIPERACILL/TAZOBAC CONSULT ACTIVE PRN (14:38)
[2020-01-29] MEDS ORDERED: GLUCOSE 40% GEL 15 GM TUBE PO PRN (15:30)
[2020-01-29] MEDS ORDERED: GLUCOSE 10 TABS/TUBE PO PRN (15:30)
[2020-01-29] MEDS ORDERED: CARBOHYDRATES FOR HYPOGLYCEMIA PO PRN (15:30)
[2020-01-29] MEDS ORDERED: GLUCAGON FOR INJ 1 MG VIAL IM PRN (15:30)
[2020-01-29] MEDS ORDERED: DEXTROSE 50% 50 ML SYRINGE IV PRN (15:30)
[2020-01-29] MEDS ORDERED: PIPERACILLIN/TAZOBACTAM 3.375 GM in DEXTROSE 5% 100 ML IV ONE (15:30)
[2020-01-29] MEDS: INSULIN ASPART 100 UNITS/ML 3 ML PEN SC SCH (19:03)
[2020-01-29] MEDS: IBUPROFEN 200 MG TAB PO PRN (19:09)
[2020-01-29] MEDS: ROSUVASTATIN CALCIUM 10 MG TAB PO SCH (20:52)
[2020-01-29] MEDS: gemfibroziL 600 MG TAB PO SCH (20:52)
[2020-01-29] MEDS: LACTATED RINGER'S 1,000 ML IV SCH (20:53)
[2020-01-29] MEDS ORDERED: metFORMIN HCL 500 MG TAB PO SCH (21:00)
[2020-01-29] MEDS ORDERED: glyBURIDE 5 MG TAB PO SCH (21:00)
[2020-01-29] MEDS: PIPERACILLIN/TAZOBACTAM 3.375 GM in DEXTROSE 5% 100 ML IV SCH (21:14)
[2020-01-29] MEDS: oxyCODONE/ACETAMINOPHEN 5mg/325mg TAB PO PRN (23:09)
[2020-01-30] MEDS: INSULIN ASPART 100 UNITS/ML 3 ML PEN SC SCH ×5 (00:04→20:57)
[2020-01-30] MEDS: LACTATED RINGER'S 1,000 ML IV SCH ×2 (03:27→15:13)
[2020-01-30] MEDS: oxyCODONE/ACETAMINOPHEN 5mg/325mg TAB PO PRN ×3 (04:42→19:11)
[2020-01-30] MEDS: PIPERACILLIN/TAZOBACTAM 3.375 GM in DEXTROSE 5% 100 ML IV SCH ×3 (06:10→21:27)
[2020-01-30 06:18] LABS: Basophils # (auto) 0.01 K/uL (0-0.2); Basophils % (auto) 0.1 %; Eosinophils # (auto) 0.06 K/uL (0-0.5); Eosinophils % (auto) 0.5 %; Hematocrit (blood only) 37.3 % (37-47); Hemoglobin 12.3 g/dL (12.0-16.0); Immature Granulocytes # (auto) 0.03 K/uL (0.00-0.02); Immature Granulocytes % (auto) 0.2 %; Lymphocytes # (auto) 1.16 K/uL (1.2-3.4); Mean Corpuscular Hemoglobin 31.4 pg (25-34); Mean Corpuscular Volume 95.2 fL (80-100); Mean Platelet Volume 10.9 fL (7.4-10.4); Monocytes # (auto) 0.95 K/uL (0.11-0.59); Monocytes % (auto) 7.4 %; Neutrophils # (auto) 10.63 K/uL (1.4-6.5); Neutrophils % (auto) 82.8 %; Platelet Count 184 K/uL (130-400); RDW Coefficient of Variation 14.4 % (11.5-14.5); RDW Standard Deviation 49.9 fL (36.4-46.3); Red Blood Count 3.92 M/uL (4.2-5.4); White Blood Count 12.84 K/uL (4.8-10.8)
[2020-01-30 06:57] LABS: Creatinine Clr Calc Pharmacy 64.5 ml/min; Est GFR (African American) 78.5; Est GFR (Non-African American) 67.7
[2020-01-30] MEDS: LISINOPRIL/HCTZ 10/12.5MG TAB PO SCH (08:50)
[2020-01-30] MEDS: gemfibroziL 600 MG TAB PO SCH ×2 (08:50→20:55)
[2020-01-30] MEDS ORDERED: Nursing to Pharmacy Communication SCH (11:00)
--- NOTE | 2020-01-30 11:54 | Surgery Progress Note ---
Date of Service F/U S/P laparoscopic appendectomy for acute appendicitis, POD 1 doing better, less abdominal pain, tolerated clear diet, no nausea, no vomiting, ZEESHAN 115ml cloud January 30, 2020 Assessment & Plan (1) Acute appendicitis: pt is a 59 year-old female who presents to ER with one day history RLQ pain, IMP; acute appendicitis, Plan, I recommend to do laparoscopic appendectomy, possible open , D/W benefits, risks and alternatives of the surgery, the risks - infection, bleeding, abscess, sepsis, injury other organs, incision hernia, pt understood, she agrees with the surgery, I answered all questions, pre-op antibiotic 01/30/2020 11:56AM F/U S/P lap appy POD 1, I update about OR finding and procedure pt had, doing fine, continue IV antibiotic for other 2 days, repeat labs in am 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, Admission and Anticipated Discharge Date Admission Date: January 29, 2020 Review of Systems Constitutional: as per Subjective / HPI Eyes: as per Subjective / HPI Ear, Nose, Mouth, Throat: as per Subjective / HPI Respiratory: as per Subjective / HPI Cardiovascular: as per Subjective / HPI Gastrointestinal: as per Subjective / HPI Genitourinary: as per Subjective / HPI Musculoskeletal: as per Subjective / HPI Integumentary: as per Subjective / HPI Neurologic: as per Subjective / HPI Psychiatric: as per Subjective / HPI Endocrine: as per Subjective / HPI Hematologic / Lymphatic: as per Subjective / HPI Physical Exam Constitutional: WD/WN, vitals as above well developed and well nourished Eyes: PERRL, conjunctivae normal, anicteric sclerae ENMT: external ear and nose normal, oropharynx normal Neck: trachea midline, no thyromegaly Respiratory: normal respiratory effort, lungs clear to auscultation Cardiovascular: RRR, no murmur, no edema Rate/Rhythm: regular rate and regular rhythm Heart Sounds: normal S1 and normal S2 Gastrointestinal (Abdomen): Percussion/Palpation: abdomen soft mild tenderness at incision site, all incisions intact, no redness, ZEESHAN drainage intact, Musculoskeletal: no cyanosis or clubbing, extremities motor strength 5/5 Skin: no rashes, warm and dry Neurologic: patellar DTR's 2+ bilat, sensation intact Psychiatric: Orientation: alert and oriented x 3 Results & Data ([facility]) Vital Signs (Past 12 Hours) Vital Signs Temp Pulse Resp BP Pulse Ox 01/30/20 09:03 137/73 01/30/20 07:45 37.4 C 103 H 16 135/77 93 01/30/20 03:01 36.9 C 92 H 16 118/72 94 Laboratory Results Abnormal lab results 01/29/20 01/29/20 01/29/20 Range/Units 13:27 17:59 23:57 WBC (4.8-10.8) K/uL RBC (4.2-5.4) M/uL RDW Std Deviation (36.4-46.3) fL MPV (7.4-10.4) fL Neut # (Auto) (1.4-6.5) K/uL Lymph # (Auto) (1.2-3.4) K/uL [place] # (Auto) (0.11-0.59) K/uL Immature Gran # (Auto) (0.00-0.02) K/uL POC Glucose 163 H 126 H 162 H (70-99) mg/dl 01/30/20 01/30/20 Range/Units 05:48 06:00 WBC 12.84 H (4.8-10.8) K/uL RBC 3.92 L (4.2-5.4) M/uL RDW Std Deviation 49.9 H (36.4-46.3) fL MPV 10.9 H (7.4-10.4) fL Neut # (Auto) 10.63 H (1.4-6.5) K/uL Lymph # (Auto) 1.16 L (1.2-3.4) K/uL [place] # (Auto) 0.95 H (0.11-0.59) K/uL Immature Gran # (Auto) 0.03 H (0.00-0.02) K/uL POC Glucose 192 H (70-99) mg/dl
[2020-01-30] MEDS: ENOXAPARIN INJ 40 MG/0.4 ML SYR SQ SCH (13:47)
[2020-01-30] MEDS ORDERED: NON-FORMULARY PATIENT'S OWN MED SC SCH (16:00)
[2020-01-30] MEDS: STARLIX 120 MG PO SCH (17:11)
[2020-01-30] MEDS: ROSUVASTATIN CALCIUM 10 MG TAB PO SCH (20:55)
[2020-01-31] MEDS: oxyCODONE/ACETAMINOPHEN 5mg/325mg TAB PO PRN ×4 (01:51→21:34)
[2020-01-31] MEDS: LACTATED RINGER'S 1,000 ML IV SCH ×2 (03:42→16:54)
[2020-01-31] MEDS: PIPERACILLIN/TAZOBACTAM 3.375 GM in DEXTROSE 5% 100 ML IV SCH ×3 (05:45→21:28)
[2020-01-31 06:41] LABS: Basophils # (auto) 0.02 K/uL (0-0.2); Basophils % (auto) 0.2 %; Eosinophils % (auto) 0.8 %; Hematocrit (blood only) 36.5 % (37-47); Hemoglobin 11.8 g/dL (12.0-16.0); Immature Granulocytes # (auto) 0.03 K/uL (0.00-0.02); Immature Granulocytes % (auto) 0.2 %; Lymphocytes % (auto) 15.2 %; Mean Corpuscular Hgb Conc 32.3 g/dL (32-36); Mean Corpuscular Volume 95.8 fL (80-100); Mean Platelet Volume 10.7 fL (7.4-10.4); Monocytes # (auto) 0.74 K/uL (0.11-0.59); Monocytes % (auto) 5.9 %; Neutrophils # (auto) 9.75 K/uL (1.4-6.5); Neutrophils % (auto) 77.7 %; Platelet Count 199 K/uL (130-400); RDW Coefficient of Variation 14.3 % (11.5-14.5); RDW Standard Deviation 50.9 fL (36.4-46.3); Red Blood Count 3.81 M/uL (4.2-5.4); White Blood Count 12.54 K/uL (4.8-10.8)
[2020-01-31 07:05] LABS: Albumin Level 2.8 gm/dl (3.4-5.0); BUN Creatinine Ratio 12.1 (10-20); Calcium 9.2 mg/dl (8.5-10.1); Creatinine Clr Calc Pharmacy 78.9 ml/min; Est GFR (African American) 100.2; Est GFR (Non-African American) 86.5
[2020-01-31 07:12] LABS: Albumin Globulin Ratio 0.6 (0.9-2); Bilirubin,Total 0.5 mg/dl (0.2-1); Globulin 4.4 gm/dl (2.5-4.0); Total Protein 7.2 gm/dl (6.4-8.2)
[2020-01-31] MEDS ORDERED: ONDANSETRON INJ 2 MG/ML 2 ML VIAL IV PRN (08:00)
[2020-01-31] MEDS: LISINOPRIL/HCTZ 10/12.5MG TAB PO SCH (09:06)
[2020-01-31] MEDS: INSULIN ASPART 100 UNITS/ML 3 ML PEN SC SCH ×4 (09:06→21:36)
[2020-01-31] MEDS: gemfibroziL 600 MG TAB PO SCH ×2 (09:06→21:18)
[2020-01-31] MEDS: ENOXAPARIN INJ 40 MG/0.4 ML SYR SQ SCH (09:08)
--- NOTE | 2020-01-31 11:01 | Surgery Progress Note ---
Date of Service January 31, 2020 Assessment & Plan (1) Acute appendicitis: s/p laparoscopic appendectomy WBC 12; plan to continue IV abx today will order prn zofran for nausea; will continue on full liquids for now until symptoms improve ZEESHAN drain to remain in place; serous output noted encourage activity as tolerates pt seen and examined with Dr. Fitch Admission and Anticipated Discharge Date Admission Date: January 29, 2020 Subjective Patient endorsing some nausea this AM. Feeling some intermittent twinges of abdominal pain in the RLQ that come and go. She is starting to feel some rumblings, but has not passed much flatus yet. Physical Exam Physical Exam: awake/alert Constitutional: no acute distress sitting up in chair Respiratory: normal respiratory effort Gastrointestinal (Abdomen): Inspection/Auscultation: + abdominal surgical drain present (serous output, 65cc); abdomen not distended Percussion/Palpation: + abdomen tender (appropriately tender dang-incisionally) and abdomen soft Results & Data ([facility]) Vital Signs (Past 12 Hours) Vital Signs Temp Pulse Pulse Resp BP Pulse Ox 01/31/20 09:05 97 H 128/75 01/31/20 06:38 36.8 C 93 H 18 119/76 94 01/30/20 23:37 37.5 C 95 H 14 125/75 93 PG Care Time/CCT Total # of Minutes Spent Total Time Spent with Patient: Total time spent is greater than 50% in coordination of care (as documented) at patient's floor/unit and/or counseling patient: Coding Level of Care Code 88396 Subseq Hosp Care Lvl 1 Diagnoses Acute appendicitis K35.80 Acute appendicitis type: unspecified acute appendicitis type (1) Acute appendicitis Acute appendicitis type: unspecified acute appendicitis type Qualified Code(s): K35.80 - Unspecified acute appendicitis
[2020-01-31] MEDS: STARLIX 120 MG PO SCH (18:00)
[2020-01-31] MEDS: ROSUVASTATIN CALCIUM 10 MG TAB PO SCH (21:18)
[2020-02-01] MEDS: PIPERACILLIN/TAZOBACTAM 3.375 GM in DEXTROSE 5% 100 ML IV SCH ×3 (05:04→21:31)
[2020-02-01] MEDS: LACTATED RINGER'S 1,000 ML IV SCH ×2 (05:05→17:32)
[2020-02-01 06:24] LABS: Basophils # (auto) 0.01 K/uL (0-0.2); Basophils % (auto) 0.1 %; Eosinophils # (auto) 0.12 K/uL (0-0.5); Eosinophils % (auto) 1.1 %; Hematocrit (blood only) 36.7 % (37-47); Immature Granulocytes # (auto) 0.03 K/uL (0.00-0.02); Immature Granulocytes % (auto) 0.3 %; Lymphocytes # (auto) 1.17 K/uL (1.2-3.4); Lymphocytes % (auto) 10.3 %; Mean Corpuscular Hgb Conc 32.7 g/dL (32-36); Mean Corpuscular Volume 94.8 fL (80-100); Mean Platelet Volume 10.8 fL (7.4-10.4); Monocytes # (auto) 0.81 K/uL (0.11-0.59); Monocytes % (auto) 7.1 %; Neutrophils % (auto) 81.1 %; Platelet Count 239 K/uL (130-400); RDW Coefficient of Variation 14.2 % (11.5-14.5); RDW Standard Deviation 49.1 fL (36.4-46.3); Red Blood Count 3.87 M/uL (4.2-5.4); White Blood Count 11.34 K/uL (4.8-10.8)
[2020-02-01 06:48] LABS: BUN Creatinine Ratio 13.4 (10-20); Calcium 9.3 mg/dl (8.5-10.1); Creatinine Clr Calc Pharmacy 88.1 ml/min; Est GFR (African American) 111.8; Est GFR (Non-African American) 96.4; Potassium 3.9 mmol/L (3.5-5.1)
--- NOTE | 2020-02-01 08:09 | Surgery Progress Note ---
Date of Service February 01, 2020 Assessment & Plan (1) Acute appendicitis: POD 3 lap appy some distention, will check KUB & keep here today keep on liquids, IVF WBC trending down, on Zosyn seen with Dr. Fitch Admission and Anticipated Discharge Date Admission Date: January 29, 2020 Subjective some nausea, no vomiting, some flatus but no BM Physical Exam Gastrointestinal (Abdomen): Inspection/Auscultation: + abdomen distended (moderate), + abdominal surgical incision (dry) and + abdominal surgical drain present (15 cc, serous ) Percussion/Palpation: abdomen soft Results & Data ([facility]) Vital Signs (Past 12 Hours) Vital Signs Temp Pulse Pulse Resp BP Pulse Ox 02/01/20 07:35 36.8 C 81 16 138/83 99 01/31/20 23:43 37 C 84 84 16 111/70 94 PG Care Time/CCT Total # of Minutes Spent Total Time Spent with Patient: Total time spent is greater than 50% in coordination of care (as documented) at patient's floor/unit and/or counseling patient: Coding Level of Care Code 88785 Subseq Hosp Care Lvl 1 Diagnoses Acute appendicitis K35.80 Acute appendicitis type: unspecified acute appendicitis type (1) Acute appendicitis Acute appendicitis type: unspecified acute appendicitis type Qualified Code(s): K35.80 - Unspecified acute appendicitis
[2020-02-01] MEDS: gemfibroziL 600 MG TAB PO SCH ×2 (09:18→21:29)
[2020-02-01] MEDS: LISINOPRIL/HCTZ 10/12.5MG TAB PO SCH (09:18)
[2020-02-01] MEDS: INSULIN ASPART 100 UNITS/ML 3 ML PEN SC SCH ×4 (09:19→22:01)
[2020-02-01] MEDS: ENOXAPARIN INJ 40 MG/0.4 ML SYR SQ SCH (09:19)
--- NOTE | 2020-02-01 09:55 | XRay Report ---
KUB CLINICAL HISTORY: Postoperative nausea. Status post appendectomy. FINDINGS: 3 AP supine abdominal radiographs are correlated with abdominal CT dated 01/29/2020. A surg ical drain and suture material are noted in the right lower quadrant. There is gaseous distention of the colon. There is milder distention of a small bowel loop in the right lower quadrant. No evidence of intraperitoneal free air is seen on these supine images. No abnormal abdominal calcifications are identified. The bony structures appear intact. The lung bases are clear as imaged. IMPRESSION: 1. Surgical drain is noted in the right lower quadrant. 2. There is gaseous distention of the colon which favors postoperative ileus. Electronically signed by: Tico Bermudez M.D. 02/01/2020 9:54 AM
[2020-02-01] MEDS: IBUPROFEN 200 MG TAB PO PRN ×2 (13:46→19:41)
[2020-02-01] MEDS: STARLIX 120 MG PO SCH (16:32)
[2020-02-01] MEDS: ROSUVASTATIN CALCIUM 10 MG TAB PO SCH (21:29)
[2020-02-02] MEDS: PIPERACILLIN/TAZOBACTAM 3.375 GM in DEXTROSE 5% 100 ML IV SCH ×3 (05:34→22:39)
[2020-02-02] MEDS: LACTATED RINGER'S 1,000 ML IV SCH ×2 (05:34→18:12)
[2020-02-02] MEDS: ENOXAPARIN INJ 40 MG/0.4 ML SYR SQ SCH (09:10)
[2020-02-02] MEDS: gemfibroziL 600 MG TAB PO SCH ×2 (09:10→19:57)
[2020-02-02] MEDS: LISINOPRIL/HCTZ 10/12.5MG TAB PO SCH (09:10)
[2020-02-02] MEDS: INSULIN ASPART 100 UNITS/ML 3 ML PEN SC SCH ×4 (09:13→20:49)
--- NOTE | 2020-02-02 12:22 | Surgery Progress Note ---
Date of Service February 02, 2020 Assessment & Plan (1) Acute appendicitis: Postoperative day #4 status post laparoscopic cholecystectomy Peristalsis is now returning Tolerated full liquid diets will advance to regular diet Would keep in the hospital 1 more day to assure that she is tolerating a regular diet Continue IV antibiotics Encouraged ambulation Admission and Anticipated Discharge Date Admission Date: January 29, 2020 Subjective Postoperative day #4 status post laparoscopic appendectomy Bowel function returning slowly but had small bowel movement last night and is passing flatus Abdominal discomfort is decreasing Tolerated full liquid diet Denies nausea and vomiting ZEESHAN had 60 cc out yesterday and 10 cc out last shift, all serosanguineous Physical Exam Gastrointestinal (Abdomen): Inspection/Auscultation: abdomen not distended Percussion/Palpation: + abdomen tender (Incisional only) and abdomen soft Results & Data ([facility]) Vital Signs (Past 12 Hours) Vital Signs Temp Pulse Resp BP Pulse Ox 02/02/20 07:02 36.5 C 77 18 144/89 H 95 (1) Acute appendicitis Acute appendicitis type: unspecified acute appendicitis type Qualified Code(s): K35.80 - Unspecified acute appendicitis
[2020-02-02] MEDS: IBUPROFEN 200 MG TAB PO PRN ×2 (13:37→19:57)
[2020-02-02] MEDS: STARLIX 120 MG PO SCH (16:24)
[2020-02-02] MEDS: ROSUVASTATIN CALCIUM 10 MG TAB PO SCH (19:57)
[2020-02-03] MEDS: LACTATED RINGER'S 1,000 ML IV SCH (05:15)
[2020-02-03] MEDS: PIPERACILLIN/TAZOBACTAM 3.375 GM in DEXTROSE 5% 100 ML IV SCH (05:15)
[2020-02-03 07:27] LABS: Creatinine Clr Calc Pharmacy 68.9 ml/min; Est GFR (African American) 85.1; Est GFR (Non-African American) 73.4
[2020-02-03] MEDS: gemfibroziL 600 MG TAB PO SCH (08:59)
[2020-02-03] MEDS: LISINOPRIL/HCTZ 10/12.5MG TAB PO SCH (08:59)
[2020-02-03] MEDS: ENOXAPARIN INJ 40 MG/0.4 ML SYR SQ SCH (08:59)
[2020-02-03] MEDS: INSULIN ASPART 100 UNITS/ML 3 ML PEN SC SCH ×2 (09:48→12:58)
--- NOTE | 2020-02-03 12:42 | Surgery Progress Note ---
Date of Service pt is doing fine, no abdominal pain, no fever, tolerated diet, passed BM, ZEESHAN- 30-ml clear. February 03, 2020 Assessment & Plan (1) Acute appendicitis: Postoperative day #4 status post laparoscopic cholecystectomy Peristalsis is now returning Tolerated full liquid diets will advance to regular diet Would keep in the hospital 1 more day to assure that she is tolerating a regular diet Continue IV antibiotics Encouraged ambulation 05/05/2019 12: 41Pm doing fine, discharge home today. the post-op care instruction was given, F/U 2 weeks [id number] Admission and Anticipated Discharge Date Admission Date: January 29, 2020 Subjective Postoperative day #4 status post laparoscopic appendectomy Bowel function returning slowly but had small bowel movement last night and is passing flatus Abdominal discomfort is decreasing Tolerated full liquid diet Denies nausea and vomiting ZEESHAN had 60 cc out yesterday and 10 cc out last shift, all serosanguineous Physical Exam Constitutional: WD/WN, vitals as above well developed and well nourished Eyes: PERRL, conjunctivae normal, anicteric sclerae ENMT: external ear and nose normal, oropharynx normal Neck: trachea midline, no thyromegaly Respiratory: normal respiratory effort, lungs clear to auscultation Cardiovascular: RRR, no murmur, no edema Rate/Rhythm: regular rate and regular rhythm Heart Sounds: normal S1 and normal S2 Gastrointestinal (Abdomen): normal bowel sounds, soft, nontender, no hepatosplenomegaly Percussion/Palpation: abdomen soft all incisions intact, no redness, Musculoskeletal: no cyanosis or clubbing, extremities motor strength 5/5 Skin: no rashes, warm and dry Neurologic: patellar DTR's 2+ bilat, sensation intact Psychiatric: Orientation: alert and oriented x 3 Results & Data ([facility]) Vital Signs (Past 12 Hours) Vital Signs Temp Pulse Resp BP Pulse Ox 02/03/20 06:53 36.7 C 66 16 129/82 97 (1) Acute appendicitis Acute appendicitis type: unspecified acute appendicitis type Qualified Code(s): K35.80 - Unspecified acute appendicitis
--- NOTE | 2020-02-03 13:46 | Discharge Summary (DS) ---
DATE OF DISCHARGE: 02/03/2020 ADMITTING DIAGNOSIS: Acute appendicitis. DISCHARGE DIAGNOSIS: Acute appendicitis. OPERATION: Laparoscopic appendectomy. SURGEON: Oli Coburn MD. DETAILS OF DISCHARGE SUMMARY: This is a 59-year-old female who presented to ED with acute abdominal pain. The patient had a CT scan diagnosis of acute appendicitis. We took the patient to the OR. We did a laparoscopic appendectomy on 01/29/2020 and during the OR, we found the patient had significant inflammation with enlarged appendix. Otherwise, the patient tolerated the procedure well. The patient was admitted to the regular floor. The patient was given IV antibiotic and patient is doing fine. She tolerated a diet, no significant abdominal pain and the ZEESHAN drainage only about 30 mL clear fluid. PHYSICAL EXAMINATION: VITAL SIGNS: Temperature is 36.7, respiratory rate is 16. The heart rate is 66, blood pressure 129/82. O2 saturation 97% on room air. GENERAL: The patient is alert, awake, oriented x3. HEENT: With normal limitation. NEUROLOGIC: Intact. NECK: No JVD. CHEST: Bilateral lung sounds clear. HEART: Normal S1, S2. No murmur. ABDOMEN: Soft, no distention. All dressing intact and incision healing well. No redness. The ZEESHAN drainage was pulled out. The patient tolerated this well. We covered with 4 x 4 gauze. EXTREMITIES: No edema. Then, we decided to discharge the patient home. We gave the patient discharge instructions and I will follow up the patient in 1-2 weeks. The patient understands.
== END 2020-02-03 14:15 | disposition home or self-care (01) | DRG 343 ==
LOC: ED 05:59 → 3N 10:01